=== PATIENT | male | born 1975 | race American Indian/Alaskan Native ===

== ENCOUNTER 2018-04-17 09:05 | Outpatient (CLI) | payer OTHER ==
[2018-04-17] MEDS ORDERED: XYLOCAINE TOPICAL 4% TP ONE ×2 (09:23→09:29)
== END 2018-04-17 09:06 | disposition home or self-care (01) ==
LOC: WOUND 09:05
PROVIDERS: ATTEND Surgery
DX: L97.212 Non-pressure chronic ulcer of right calf with fat layer exposed (principal); S80.251D Superficial foreign body, right knee, subsequent encounter; W34.00XD Accidental discharge from unspecified firearms or gun, subsequent encounter
CPT/HCPCS: 99213; G0463

== ENCOUNTER 2018-05-08 07:48 | Outpatient (CLI) | payer OTHER ==
[2018-05-08] MEDS ORDERED: XYLOCAINE TOPICAL 4% TP NR (07:55)
== END 2018-05-08 07:49 | disposition home or self-care (01) ==
LOC: WOUND 07:48
PROVIDERS: ATTEND Surgery
DX: L97.212 Non-pressure chronic ulcer of right calf with fat layer exposed (principal)
CPT/HCPCS: 99213; G0463

== ENCOUNTER 2018-05-22 07:46 | Outpatient (CLI) | payer OTHER ==
[2018-05-22] MEDS ORDERED: XYLOCAINE TOPICAL 4% TP NR (08:15)
== END 2018-05-22 07:47 | disposition home or self-care (01) ==
LOC: WOUND 07:46
PROVIDERS: ATTEND Surgery
DX: L97.212 Non-pressure chronic ulcer of right calf with fat layer exposed (principal)
CPT/HCPCS: 99214; G0463

== ENCOUNTER 2018-05-29 07:47 | Outpatient (CLI) | payer OTHER ==
[2018-05-29] MEDS ORDERED: XYLOCAINE TOPICAL 4% TP ONE (08:06)
[2018-05-29] MEDS ORDERED: AD OINTMENT TP PRN (08:30)
== END 2018-05-29 07:48 | disposition home or self-care (01) ==
LOC: WOUND 07:47
PROVIDERS: ATTEND Surgery
DX: L97.212 Non-pressure chronic ulcer of right calf with fat layer exposed (principal)
CPT/HCPCS: 99215; A6250; G0463